=== PATIENT | female | born 1980 | race Caucasian/White ===

== ENCOUNTER 2018-01-31 08:37 | Emergency (ER) | payer OTHER ==
[~2018-01-31] VITALS: Ht 170.2 cm; Wt 76.5 kg
[~2018-01-31 08:37] MED LIST: BACLOFEN10 MG PO; BENEFIBER98 GM PO; CLONAZEPAM0.5 MG PO; DILAUDID4 MG PO; DOCUSATE SODIU100 MG PO; INDOCIN25 MG PO; KLONOPIN1 MG PO; LAMICTAL150 M1 PO; METHADONE10 MG PO; OMEPRAZOLE20 MG PO; OMEPRAZOLE40 M1 PO; PAXIL30 MG PO; ZANTAC150 MG PO; ZOFRAN ODT4 MG PO
[2018-01-31] MEDS ORDERED: VOLTAREN 1% GE100 GM TP (10:27)
[2018-01-31 10:48] VITALS: BP 122/85
== END 2018-01-31 10:52 | disposition home or self-care (01) ==
LOC: EME 08:37
PROC: 2W3RX1Z Immobilization of Left Lower Leg using Splint (ICD-10-PCS; principal; 2018-01-31)
DX: S92.912A Unspecified fracture of left toe(s), initial encounter for closed fracture (principal); W07.XXXA Fall from chair, initial encounter; Y93.84 Activity, sleeping; Y92.007 Garden or yard of unspecified non-institutional (private) residence as the place of occurrence of the external cause; G90.50 Complex regional pain syndrome I, unspecified; Z87.81 Personal history of (healed) traumatic fracture; K21.9 Gastro-esophageal reflux disease without esophagitis; F40.00 Agoraphobia, unspecified; F41.9 Anxiety disorder, unspecified; F31.9 Bipolar disorder, unspecified; F32.9 Major depressive disorder, single episode, unspecified; F17.200 Nicotine dependence, unspecified, uncomplicated; Z88.6 Allergy status to analgesic agent; Z88.5 Allergy status to narcotic agent; Z88.8 Allergy status to other drugs, medicaments and biological substances
CPT/HCPCS: 73630; 99281; 99284

== ENCOUNTER 2018-05-09 10:41 | Emergency (ER) | payer OTHER ==
[~2018-05-09] VITALS: Ht 167.6 cm; Wt 70.6 kg
[~2018-05-09 10:41] MED LIST changes: +VOLTAREN 1% GE100 GM TP
[2018-05-09 11:41] LABS: BASOPHIL (%) 0.5 % (0-1); EOSINOPHIL (%) 2.9 % (0-5); EOSINOPHIL COUNT 0.2 K/uL (0-0.3); HEMATOCRIT 38.1 % (36.0-46.0); HEMOGLOBIN 13.1 G/DL (11.9-15.5); IMMATURE GRANULOCYTE (%) 0.5 % (0.0-0.7); LYMPHOCYTE (%) 20.9 % (15-42); LYMPHOCYTE COUNT 1.6 K/uL (1.0-2.8); MCH 33.9 PG (29.0-34.0); MCHC 34.4 G/DL (30.0-36.0); MCV 98.4 FL (83-99); MONOCYTE (%) 6.6 % (3-12); MONOCYTE COUNT 0.5 K/uL (0-0.8); NEUTROPHIL (%) 68.6 % (45-76); NEUTROPHIL COUNT 5.2 K/uL (1.8-6.4); PLATELET COUNT 270 K/uL (156-360); RBC DIS.WIDTH-CV 12.6 % (11.8-14.6); RBC DIS.WIDTH-SD 45.7 % (39-53); RED BLOOD COUNT 3.87 M/uL (3.80-5.20); WHITE BLOOD COUNT 7.6 K/uL (4.1-10.2)
[2018-05-09 11:48] LABS: APPEARANCE CLEAR ((CLEAR)); BILIRUBIN NEGATIVE; BLOOD MODERATE; COLOR YELLOW ((YELLOW)); GLUCOSE (STRIP) NEGATIVE; KETONES 5; LEUKOCYTES NEGATIVE; NITRITE NEGATIVE; PROTEIN (STRIP) NEGATIVE; SPECIFIC GRAVITY 1.012 (1.000-1.030)
[2018-05-09 11:51] LABS: BACTERIA RARE /HPF; EPITHELIAL CELLS 1+ /HPF; MUCUS TRACE /LPF; RED BLOOD CELLS 0-5 /HPF (0-5); UCUL ADDED? NO; WHITE BLOOD CELLS 0-5 /HPF (0-5)
[2018-05-09 11:54] LABS: ALBUMIN 4.1 g/dL (3.2-4.8); CHLORIDE 105 mEq/L (99-109); POTASSIUM 4.1 mEq/L (3.7-5.4); SODIUM 138 mEq/L (136-147)
[2018-05-09 11:56] LABS: GLUCOSE 93 mg/dL (70-99)
[2018-05-09 11:57] LABS: TOTAL PROTEIN 7.1 g/dL (6.4-8.3)
[2018-05-09 11:58] LABS: TOTAL BILIRUBIN 0.3 mg/dL (0.0-1.0)
[2018-05-09 12:00] LABS: ALKALINE PHOSPHATASE 80 IU/L (3-129); CREATININE 0.8 mg/dL (0.6-1.3); GFR ESTIMATE (CALCULATED) > 59 mL/min/
[2018-05-09 12:01] LABS: UREA NITROGEN (BUN) 5 mg/dL (9-23)
[2018-05-09 12:02] LABS: AST (GOT) 25 IU/L (2-34)
[2018-05-09 12:03] LABS: ALT (GPT) 21 IU/L (3-49)
[2018-05-09 12:04] LABS: LIPASE 35 U/L (1.0-51.0)
[2018-05-09 12:10] LABS: QUANTITATIVE HCG < 4.0 MIU/ML
[2018-05-09] MEDS ORDERED: ULTRAM50 MG PO (13:12)
[2018-05-09 13:35] VITALS: BP 113/75
== END 2018-05-09 13:41 | disposition home or self-care (01) ==
LOC: EME 10:41
PROVIDERS: Emergency Medicine
DX: R10.9 Unspecified abdominal pain (principal); K21.9 Gastro-esophageal reflux disease without esophagitis; F31.9 Bipolar disorder, unspecified; F41.9 Anxiety disorder, unspecified; F32.9 Major depressive disorder, single episode, unspecified; F17.200 Nicotine dependence, unspecified, uncomplicated; Z88.6 Allergy status to analgesic agent; Z88.5 Allergy status to narcotic agent; Z88.8 Allergy status to other drugs, medicaments and biological substances
CPT/HCPCS: 76705; 80053; 81003; 83690; 84702; 85025; 99281; 99285; J1885; J2405; J7030